=== PATIENT | female | born 1980 | race Caucasian/White ===

== ENCOUNTER 2017-01-06 11:12 | Emergency (ER) | payer OTHER | END 2017-01-06 12:33 | disposition home or self-care (01) | LOC: ER 11:12 | DX: S61.422A Laceration with foreign body of left hand, initial encounter (principal); W45.8XXA Other foreign body or object entering through skin, initial encounter; Z79.899 Other long term (current) drug therapy | CPT/HCPCS: 90471; 90715; 99282-25 ==